=== PATIENT | male | born 1960 | race Caucasian/White ===

== ENCOUNTER 2019-06-18 12:28 | Emergency (ER) | payer OTHER ==
[2019-06-18 13:00] VITALS: BP 127/72; PULSE 56; RESP 20; TEMP 98.1
--- NOTE | 2019-06-18 13:47 | ED ---
Skin/Abscess/FB HPI - General Chief complaint: Skin/Abscess/Foreign Body Stated complaint: Shingles Time Seen by Provider: 06/18/19 13:15 Source: patient, RN notes reviewed Mode of arrival: ambulatory Limitations: no limitations - History of Present Illness Initial comments: This a 59-year-old male presents emergency Department from [facility] shingles. Patient has a history of shingles states it presented exactly similar in the past. He states it started last 1-2 days. He states he has mild discomfort but does not require any pain meds for this. Patient states that he has no left ocular pain no blurred vision. Patient stated that they did do an eye exam but were worried about treating this and was sent here for evaluation. - Related Data Home Medications Medication Instructions Recorded Confirmed Aspirin [Adult Low Dose Aspirin EC] 81 mg PO DAILY 10/17/18 11/22/18 Escitalopram [Lexapro] 20 mg PO DAILY 10/17/18 11/26/18 Hydrochlorothiazide 25 mg PO DAILY 10/17/18 11/26/18 Lisinopril 20 mg PO QAM 10/17/18 11/26/18 Lisinopril 40 mg PO PC-SUPPER 10/17/18 11/26/18 amLODIPine BESYLATE 10 mg PO QAM 10/17/18 11/26/18 Previous Rx's Medication Instructions Recorded valACYclovir HCL [Valtrex] 1,000 mg PO Q8HR #30 tab 06/18/19 Allergies Allergy/AdvReac Type Severity Reaction Status Date / Time No Known Allergies Allergy Verified 06/18/19 13:00 Review of Systems ROS Statement: Those systems with pertinent positive or pertinent negative responses have been documented in the HPI. ROS Other: All systems not noted in ROS Statement are negative. Past Medical History Past Medical History: Hyperlipidemia, Hypertension Additional Past Medical History / Comment(s): shingles History of Any Multi-Drug Resistant Organisms: None Reported Additional Past Surgical History / Comment(s): hx of mult sx for cleft palate repair, EGD Past Anesthesia/Blood Transfusion Reactions: No Reported Reaction Past Psychological History: Anxiety Smoking Status: Never smoker Past Alcohol Use History: Rare Past Drug Use History: None Reported - Past Family History Mother Family Medical History: No Reported History General Exam Limitations: no limitations General appearance: alert, in no apparent distress Head exam: Present: atraumatic, normocephalic. Absent: normal inspection (Vesicular rash with mild erythema of the left side of the scalp, left forehead region) Eye exam: Present: normal appearance, PERRL, EOMI, periorbital swelling (Mild left upper eyelid), other (Fluorescein dye was used to evaluate the left eye there is no dendritic areas no uptake of the cornea.). Absent: scleral icterus, conjunctival injection, periorbital tenderness ENT exam: Present: normal exam, normal oropharynx, mucous membranes moist Neck exam: Present: normal inspection. Absent: tenderness, meningismus, lymphadenopathy Respiratory exam: Present: normal lung sounds bilaterally. Absent: respiratory distress, wheezes, rales, rhonchi, stridor Cardiovascular Exam: Present: regular rate, normal rhythm, normal heart sounds. Absent: systolic murmur, diastolic murmur, rubs, gallop, clicks Course Vital Signs 06/18/19 12:57 Temperature 98.1 F Pulse Rate 56 L Respiratory 20 Rate Blood Pressure 127/72 O2 Sat by Pulse 100 Oximetry Medical Decision Making - Medical Decision Making Patient is found to have herpes zoster on the left side of his scalp, forehead region. A she'll follow-up with ophthalmology tomorrow he is advised to return for any worsening symptoms. He has no ocular involvement. Patient does understand the risk. Patient will be discharged on Valtrex. Disposition Clinical Impression: Herpes zoster Disposition: HOME SELF-CARE Condition: Stable Instructions (If sedation given, give patient instructions): Shingles (ED) Additional Instructions: Please return to the Emergency Department if symptoms worsen or any other concerns. Prescriptions: valACYclovir HCL [Valtrex] 1,000 mg PO Q8HR #30 tab Is patient prescribed a controlled substance at d/c from ED?: No Referrals: Yoav Mayer [Primary Care Provider] - 1-2 days Kisha Renae MD [STAFF PHYSICIAN] - 1-2 days Time of Disposition: 13:47
== END 2019-06-18 14:05 | disposition home or self-care (01) ==
LOC: EC 12:28
DX: B02.9 Zoster without complications (principal); I10 Essential (primary) hypertension; F41.9 Anxiety disorder, unspecified; Z79.82 Long term (current) use of aspirin; Z79.899 Other long term (current) drug therapy
CPT/HCPCS: 99282

== ENCOUNTER 2019-06-19 09:49 | Emergency (ER) | payer OTHER ==
[2019-06-19 10:08] VITALS: BP 106/65; PULSE 57; RESP 18; TEMP 98.1
--- NOTE | 2019-06-19 10:37 | ED ---
Recheck HPI - General Chief Complaint: Recheck/Abnormal Lab/Rx Stated Complaint: shingles Time Seen by Provider: 06/19/19 10:09 Source: patient Mode of arrival: ambulatory Limitations: no limitations - History of Present Illness Initial Comments: Patient is 59-year-old male presenting to emergency Department with a chief complaint of shingles. Patient states he was here yesterday and diagnosed with shingles. Patient was started on Valtrex. Patient advised to follow-up with an center director. Patient states since yesterday the pain has slightly improved, however dishing also progressed to his eye. States singles only in the left side of his scalp. He also states the vesicles have now burst open and they're discharging. He does report a tingling sensation. He states that is very itchy. Does report some discomfort with extraocular movements. Denies blurry vision. - Related Data Home Medications Medication Instructions Recorded Confirmed Escitalopram [Lexapro] 20 mg PO DAILY 10/17/18 06/19/19 Hydrochlorothiazide 25 mg PO DAILY 10/17/18 06/19/19 Lisinopril 20 mg PO QAM 10/17/18 06/19/19 Lisinopril 40 mg PO HS 10/17/18 06/19/19 amLODIPine BESYLATE 10 mg PO QAM 10/17/18 06/19/19 Atorvastatin [Lipitor] 20 mg PO HS 06/19/19 06/19/19 Previous Rx's Medication Instructions Recorded valACYclovir HCL [Valtrex] 1,000 mg PO Q8HR #30 tab 06/18/19 Allergies Allergy/AdvReac Type Severity Reaction Status Date / Time No Known Allergies Allergy Verified 06/19/19 10:05 Review of Systems ROS Statement: Those systems with pertinent positive or pertinent negative responses have been documented in the HPI. ROS Other: All systems not noted in ROS Statement are negative. Past Medical History Past Medical History: Hyperlipidemia, Hypertension Additional Past Medical History / Comment(s): shingles History of Any Multi-Drug Resistant Organisms: None Reported Additional Past Surgical History / Comment(s): hx of mult sx for cleft palate repair, EGD Past Anesthesia/Blood Transfusion Reactions: No Reported Reaction Past Psychological History: Anxiety Smoking Status: Never smoker Past Alcohol Use History: Rare Past Drug Use History: None Reported - Past Family History Mother Family Medical History: No Reported History General Exam Limitations: no limitations General appearance: alert, in no apparent distress Head exam: Present: atraumatic, normocephalic. Absent: normal inspection (Shingles on the left side of his scalp starting approximately from the parietal region to inferior region of the left eye.) Eye exam: Present: PERRL, EOMI, conjunctival injection, other (No discharge. No dendrites detected with fluorescein stain.). Absent: normal appearance (Shingles involving the left eye), periorbital swelling Pupils: Present: normal accommodation ENT exam: Present: normal exam, normal oropharynx, mucous membranes moist, TM's normal bilaterally (No signs of Champion Santiago. Positive Coronado sign), normal external ear exam, other Neck exam: Present: normal inspection, full ROM Respiratory exam: Present: normal lung sounds bilaterally Cardiovascular Exam: Present: regular rate, normal rhythm, normal heart sounds Extremities exam: Present: normal inspection, full ROM Back exam: Present: normal inspection, full ROM Neurological exam: Present: alert, oriented X3 Psychiatric exam: Present: normal affect, normal mood Skin exam: Present: warm, dry, intact, normal color, rash (Shingles) Course Vital Signs 06/19/19 10:06 Temperature 98.1 F Pulse Rate 57 L Respiratory 18 Rate Blood Pressure 106/65 O2 Sat by Pulse 98 Oximetry Medical Decision Making - Medical Decision Making Patient is a 59-year-old male presenting to emergency Department with a chief complaint patient was. Patient was diagnosed with shingles yesterday and started on Valtrex. Exam patient does have herpes zoster ophthalmicus. Some discomfort with extraocular movements but not actual pain. He states the discomfort is mostly due to the vesicles located on his upper eyelid. Mild conj unctival injections Which I suspect is secondary to drainage from the vesicles that are going to the left eye. Fluorescein stain exam shows no signs of dendrites. Patient states he came to the ED again for reassurance. No signs of Champion Santiago. Positive Coronado sign. Patient states they will call the center director today. Patient given recommendations for center director. Strict return primary's were thoroughly discussed with patient was understanding and agreeable. Case discussed with physician. Disposition Clinical Impression: Herpes zoster ophthalmicus of left eye, Shingles Disposition: HOME SELF-CARE Condition: Stable Instructions (If sedation given, give patient instructions): Shingles (ED) Additional Instructions: Please follow up with ophthalmology. Apply cold compress to minimize symptoms. Continue taking prescribed medication. Return to emergency department if symptoms worsen. Is patient prescribed a controlled substance at d/c from ED?: No Referrals: Yoav Mayer [Primary Care Provider] - 1-2 days Kisha Renae MD [STAFF PHYSICIAN] - 1-2 days Time of Disposition: 11:11
[2019-06-19] MEDS ORDERED: PROPARACAINE 0.5% OPHTH DROPS 15 ML BTL RIGHT EYE STA (10:58)
== END 2019-06-19 11:29 | disposition home or self-care (01) ==
LOC: EC 09:49
DX: B02.30 Zoster ocular disease, unspecified (principal); I10 Essential (primary) hypertension; E78.5 Hyperlipidemia, unspecified; F41.9 Anxiety disorder, unspecified; Z79.899 Other long term (current) drug therapy
CPT/HCPCS: 99283

== ENCOUNTER 2020-03-19 09:43 | Emergency (ER) | payer OTHER ==
[2020-03-19 09:55] VITALS: BP 117/70; PULSE 76; TEMP 97.7
--- NOTE | 2020-03-19 10:00 | ED ---
Recheck HPI - General Chief Complaint: Recheck/Abnormal Lab/Rx Stated Complaint: FEVER Time Seen by Provider: 03/19/20 09:56 Source: patient Mode of arrival: ambulatory Limitations: no limitations - History of Present Illness Initial Comments: Patient is 60-year-old male presenting to emergency Department for colon testing. Patient states yesterday he developed some sinus congestion along with a sore throat after standing outside for prolonged periods of time. Patient states he is unaware of direct exposure to known Covid patient. Denies any ches t pain shortness of breath coughing. He does report feeling warm yesterday but never actually obtain a temperature. States he did take Tylenol last night. He denies any nausea vomiting diarrhea. States he feels well at the moment. - Related Data Home Medications Medication Instructions Recorded Confirmed Escitalopram [Lexapro] 20 mg PO DAILY 10/17/18 06/19/19 amLODIPine BESYLATE 10 mg PO QAM 10/17/18 06/19/19 hydroCHLOROthiazide 25 mg PO DAILY 10/17/18 06/19/19 lisinopriL 20 mg PO QAM 10/17/18 06/19/19 lisinopriL 40 mg PO HS 10/17/18 06/19/19 Atorvastatin [Lipitor] 20 mg PO HS 06/19/19 06/19/19 Previous Rx's Medication Instructions Recorded valACYclovir HCL [Valtrex] 1,000 mg PO Q8HR #30 tab 06/18/19 Allergies Allergy/AdvReac Type Severity Reaction Status Date / Time No Known Allergies Allergy Verified 03/19/20 09:52 Review of Systems ROS Statement: Those systems with pertinent positive or pertinent negative responses have been documented in the HPI. ROS Other: All systems not noted in ROS Statement are negative. Past Medical History Past Medical History: Hyperlipidemia, Hypertension Additional Past Medical History / Comment(s): shingles History of Any Multi-Drug Resistant Organisms: None Reported Additional Past Surgical History / Comment(s): hx of mult sx for cleft palate repair, EGD Past Anesthesia/Blood Transfusion Reactions: No Reported Reaction Past Psychological History: Anxiety Smoking Status: Never smoker Past Alcohol Use History: Rare Past Drug Use History: None Reported - Past Family History Mother Family Medical History: No Reported History General Exam Limitations: no limitations General appearance: alert, in no apparent distress Head exam: Present: atraumatic, normocephalic, normal inspection Eye exam: Present: normal appearance, PERRL, EOMI Pupils: Present: normal accommodation ENT exam: Present: normal exam, normal oropharynx, mucous membranes moist, TM's normal bilaterally, normal external ear exam Neck exam: Present: normal inspection, full ROM. Absent: tenderness Respiratory exam: Present: normal lung sounds bilaterally. Absent: respiratory distress, wheezes, rales, rhonchi, stridor Cardiovascular Exam: Present: regular rate, normal rhythm, normal heart sounds Extremities exam: Present: normal inspection, full ROM, normal capillary refill. Absent: tenderness Back exam: Present: normal inspection, full ROM. Absent: tenderness, CVA tenderness (R), CVA tenderness (L) Neurological exam: Present: alert, oriented X3, normal gait Psychiatric exam: Present: normal affect, normal mood Skin exam: Present: warm, dry, intact, normal color Course Vital Signs 03/19/20 09:53 Temperature 97.7 F Pulse Rate 76 Respiratory 16 Rate Blood Pressure 117/70 O2 Sat by Pulse 100 Oximetry Medical Decision Making - Medical Decision Making Patient is 60-year-old male presenting to the emergency department for Covid swap. Patient was symptomatic with flulike symptoms yesterday but not today. Physical examination is unremarkable. covid-19 testing pending. She was advised to take Tylenol only if he develops a fever. He was advised to self isolate until results haven't resolved. Return parameters thoroughly discussed patient is understanding and agreeable. Case discussed with physician. Disposition Clinical Impression: Sore throat, Sinus congestion, Upper respiratory infection Disposition: HOME SELF-CARE Condition: Stable Instructions (If sedation given, give patient instructions): Upper Respiratory Infection (DC) Additional Instructions: Take Tylenol if he developed fever. Self-isolation for the next 2 days until he received the results of the Covid testing. Return to emergency department if symptoms worsen. Is patient prescribed a controlled substance at d/c from ED?: No Referrals: Yoav Mayer [Primary Care Provider] - 1-2 days Time of Disposition: 10:10
[2020-03-19 10:01] VITALS: RESP 16
== END 2020-03-19 10:39 | disposition home or self-care (01) ==
LOC: EC 09:43
DX: J06.9 Acute upper respiratory infection, unspecified (principal); I10 Essential (primary) hypertension; E78.5 Hyperlipidemia, unspecified; F41.9 Anxiety disorder, unspecified; Z79.899 Other long term (current) drug therapy; Z20.828 Contact with and (suspected) exposure to other viral communicable diseases
CPT/HCPCS: 99283; U0003

== ENCOUNTER 2020-09-14 16:16 | Emergency (ER) | payer OTHER ==
[2020-09-14 16:46] VITALS: BP 106/63; PULSE 58; RESP 20; TEMP 97.8
--- NOTE | 2020-09-14 19:35 | ED ---
General Adult HPI - General Chief complaint: Abdominal Pain Stated complaint: sore throat, [place] Time Seen by Provider: 09/14/20 19:07 Source: patient Mode of arrival: ambulatory Limitations: no limitations - History of Present Illness Initial comments: Patient is a 60-year-old male presenting to the emergency Department with complaints of some mild eye pressure, some mild nausea that started this morning. Patient is requesting a Covid test. He states he's had the first shot of the vaccine and is due to get his second shot in 3 days but stated since his roommate and himself for both starting to have a few little symptoms they were urged to get tested today. He denies any coughing, no fevers or chills, no chest pain or shortness of breath. He denies any vomiting, no abdominal pain or diarrhea. He has no further complaints at this time. Upon arrival to the ER, his vitals are stable. - Related Data Home Medications Medication Instructions Recorded Confirmed Escitalopram [Lexapro] 20 mg PO DAILY 10/17/18 06/19/19 amLODIPine BESYLATE 10 mg PO QAM 10/17/18 06/19/19 hydroCHLOROthiazide 25 mg PO DAILY 10/17/18 06/19/19 lisinopriL 20 mg PO QAM 10/17/18 06/19/19 lisinopriL 40 mg PO HS 10/17/18 06/19/19 Atorvastatin [Lipitor] 20 mg PO HS 06/19/19 06/19/19 Previous Rx's Medication Instructions Recorded valACYclovir HCL [Valtrex] 1,000 mg PO Q8HR #30 tab 06/18/19 Allergies Allergy/AdvReac Type Severity Reaction Status Date / Time No Known Allergies Allergy Verified 09/14/20 16:45 Review of Systems ROS Statement: Those systems with pertinent positive or pertinent negative responses have been documented in the HPI. ROS Other: All systems not noted in ROS Statement are negative. Past Medical History Past Medical History: Hyperlipidemia, Hypertension Additional Past Medical History / Comment(s): shingles History of Any Multi-Drug Resistant Organisms: None Reported Additional Past Surgical History / Comment(s): hx of mult sx for cleft palate repair, EGD Past Anesthesia/Blood Transfusion Reactions: No Reported Reaction Past Psychological History: Anxiety Smoking Status: Never smoker Past Alcohol Use History: Rare Past Drug Use History: None Reported - Past Family History Mother Family Medical History: No Reported History General Exam - General Exam Comments Initial Comments: GENERAL: Patient is well-developed and well-nourished. Patient is nontoxic and in no acute distress. HEAD: Atraumatic, normocephalic. EYES: Pupils equal round and reactive to light, extraocular movements intact, sclera anicteric, conjunctiva are normal. Eyelids were unremarkable. ENT: TMs normal, nares patent, oropharynx clear without exudates. Moist mucous membranes. NECK: Normal range of motion, supple without lymphadenopathy or JVD. LUNGS: Unlabored respirations. Breath sounds clear to auscultation bilaterally and equal. No wheezes rales or rhonchi. HEART: Regular rate and rhythm without murmurs, rubs or gallops. ABDOMEN: Soft, nontender, normoactive bowel sounds. No guarding, no rebound. No masses appreciated. : Deferred MUSCULOSKELETAL: Normal extremities with adequate strength and normal range of motion, no pitting or edema. No clubbing or cyanosis. NEUROLOGICAL: Patient is alert and oriented x 3. Motor and sensory are also intact. Cranial nerves II through XII grossly intact. Symmetrical smile. Normal speech, normal gait. PSYCH: Normal mood, normal affect. SKIN: Warm, Dry, normal turgor, no rashes or lesions noted. Limitations: no limitations Course Vital Signs 09/14/20 16:41 Temperature 97.8 F Pulse Rate 58 L Respiratory 20 Rate Blood Pressure 106/63 O2 Sat by Pulse 99 Oximetry Medical Decision Making - Medical Decision Making Patient is a 60-year-old male here requesting a Covid test due to having a scratchy throat and some mild eye pressure today. His vital signs are stable, his exam is unremarkable. His rapid Covid test is negative. Patient is currently asymptomatic. I discussed these findings with him. He can follow up with his PCP. He is stable for discharge. Discussed with Dr. Hairston - Lab Data Lab Results 09/14/20 Range/Units 16:45 Coronavirus (PCR) Not Detected (Not Detectd) Disposition Clinical Impression: Sore throat (viral) Disposition: HOME SELF-CARE Condition: Stable Instructions (If sedation given, give patient instructions): Normal Exam (ED) Additional Instructions: Please return to the Emergency Department if symptoms worsen or any other concerns. Rapid Covid test is negative today. Is patient prescribed a controlled substance at d/c from ED?: No Referrals: Yoav Mayer [Primary Care Provider] - 1-2 days
== END 2020-09-14 19:47 | disposition home or self-care (01) ==
LOC: EC 16:16
DX: J02.9 Acute pharyngitis, unspecified (principal); H57.89 Other specified disorders of eye and adnexa; R11.0 Nausea; B97.89 Other viral agents as the cause of diseases classified elsewhere; E78.5 Hyperlipidemia, unspecified; I10 Essential (primary) hypertension; F41.9 Anxiety disorder, unspecified; Z20.822 Contact with and (suspected) exposure to COVID-19
CPT/HCPCS: 87635; 99283

== ENCOUNTER 2021-04-21 09:26 | Emergency (ER) | payer OTHER ==
[2021-04-21 09:59] VITALS: BP 145/81; PULSE 56; RESP 18; TEMP 98.7
[2021-04-21] MEDS ORDERED: LIDOCAINE 1% INJ 10MG/ML (20 ML MDV) SQ ONE (10:16)
--- NOTE | 2021-04-21 11:17 | ED ---
General Adult HPI - General Chief complaint: Wound/Laceration Stated complaint: ear lac Time Seen by Provider: 04/21/21 10:06 Source: patient, RN notes reviewed Mode of arrival: ambulatory Limitations: no limitations - History of Present Illness Initial comments: 61-year-old male with a past medical history of hyperlipidemia, hypertension presents to the emergency room for a chief complaint of left ear laceration. Patient was in his barn when his goat hit the back of his knee and patient fell and hit his ear on the barn door. Patient states his sister told him he should come get stitches. Patient states his tetanus is up-to-date within the past 2 years. Patient denies head injury or headache. Denies any difficulty hearing.Patient has no other complaints at this time including shortness of breath, chest pain, abdominal pain, nausea or vomiting, headache, or visual changes. - Related Data Home Medications Medication Instructions Recorded Confirmed Escitalopram [Lexapro] 20 mg PO DAILY 10/17/18 06/19/19 amLODIPine BESYLATE 10 mg PO QAM 10/17/18 06/19/19 hydroCHLOROthiazide 25 mg PO DAILY 10/17/18 06/19/19 lisinopriL 20 mg PO QAM 10/17/18 06/19/19 lisinopriL 40 mg PO HS 10/17/18 06/19/19 Atorvastatin [Lipitor] 20 mg PO HS 06/19/19 06/19/19 Previous Rx's Medication Instructions Recorded valACYclovir HCL [Valtrex] 1,000 mg PO Q8HR #30 tab 06/18/19 Bacitracin Zinc Oint 1 applic TOPICAL TID #28 gm 04/21/21 Cephalexin [Keflex] 500 mg PO BID 7 Days #28 cap 04/21/21 Allergies Allergy/AdvReac Type Severity Reaction Status Date / Time No Known Allergies Allergy Verified 04/21/21 09:59 Review of Systems ROS Statement: Those systems with pertinent positive or pertinent negative responses have been documented in the HPI. ROS Other: All systems not noted in ROS Statement are negative. Past Medical History Past Medical History: Hyperlipidemia, Hypertension Additional Past Medical History / Comment(s): shingles History of Any Multi-Drug Resistant Organisms: None Reported Additional Past Surgical History / Comment(s): hx of mult sx for cleft palate repair, EGD Past Anesthesia/Blood Transfusion Reactions: No Reported Reaction Past Psychological History: Anxiety Smoking Status: Never smoker Past Alcohol Use History: Rare Past Drug Use History: None Reported - Past Family History Mother Family Medical History: No Reported History General Exam Limitations: no limitations General appearance: alert, in no apparent distress Head exam: Present: atraumatic Eye exam: Present: normal appearance, PERRL, EOMI. Absent: scleral icterus, conjunctival injection ENT exam: Present: normal exam, mucous membranes moist Course Vital Signs 04/21/21 09:56 Temperature 98.7 F Pulse Rate 56 L Respiratory 18 Rate Blood Pressure 145/81 O2 Sat by Pulse 98 Oximetry Procedures - Laceration Laceration #1 Consent Obtained: verbal consent Indication: laceration Site: other (Ear) Size (cm): 4 Description: stellate, avulsion Depth: simple, single layer Anesthetic Used: lidocaine 1% Anesthesia Technique: nerve block (Auricular nerve block) Amount (mls): 6 Pre-repair: wound explored, irrigated extensively Type of Sutures: nylon Size of Sutures: 5-0 Number of Sutures: 7 Technique: simple, interrupted Patient Tolerated Procedure: well, no complications Medical Decision Making - Medical Decision Making Wound was irrigated. Laceration was repaired with 7 sutures to my best effort for anatomical alignment. Tympanic membrane appears normal. Started on antibiotics. No auricular hematoma at this time. Gui was discussed with Dr. Bray's. He will see patient on May 05 at 9 AM. Does not feel he needs to see patient in earlier. Requests he get his stitches removed at the ER. Patient will be put on Keflex as per Dr. Bray request as well as bacitracin. He requests no pressure dressing. Disposition Clinical Impression: Laceration Disposition: HOME SELF-CARE Condition: Good Instructions (If sedation given, give patient instructions): Care For Your Stitches (ED), Laceration (ED) Additional Instructions: Return in 7-10 days for suture removal. Follow-up with ENT. Take antibiotic as directed. Return for any worsening symptoms such as signs of infection. May [address] Oliv[address] office. call today before 130 to give your information. Prescriptions: Bacitracin Zinc Oint 1 applic TOPICAL TID #28 gm Cephalexin [Keflex] 500 mg PO BID 7 Days #28 cap Is patient prescribed a controlled substance at d/c from ED?: No Referrals: Yoav Mayer [Primary Care Provider] - 1-2 days Jair Bray MD [STAFF PHYSICIAN] - 1-2 days Time of Disposition: 11:23
[2021-04-21] MEDS ORDERED: BACITRACIN OINT 1 EACH PACKET TOPICAL ONE (12:07)
== END 2021-04-21 12:39 | disposition home or self-care (01) ==
LOC: EC 09:26
DX: S01.312A Laceration without foreign body of left ear, initial encounter (principal); I10 Essential (primary) hypertension; E78.5 Hyperlipidemia, unspecified; Z79.899 Other long term (current) drug therapy; W01.0XXA Fall on same level from slipping, tripping and stumbling without subsequent striking against object, initial encounter; Y92.89 Other specified places as the place of occurrence of the external cause
CPT/HCPCS: 12013; 99282